=== PATIENT | female | born 1945 ===

== ENCOUNTER 2019-03-03 09:43 | Outpatient (CLI) | payer OTHER | END 2019-03-03 09:44 | disposition home or self-care (01) | LOC: NUCLEAR 09:43 | DX: M81.8 Other osteoporosis without current pathological fracture (principal); M05.79 Rheumatoid arthritis with rheumatoid factor of multiple sites without organ or systems involvement; M87.059 Idiopathic aseptic necrosis of unspecified femur | CPT/HCPCS: 77080; 78315; A9503 ==